=== PATIENT | female | born 1970 | race African-American/Black ===

== ENCOUNTER 2023-09-23 13:09 | Outpatient (OUT) | payer OTHER, SELFPAY ==
--- NOTE | 2023-09-23 13:12 | VEIN_ITS ---
[facility] [place] [id number] Patient Name: CHARLY VANESSA MRN: [id number] date: 1970 Sex: F Assigned Patient Location: Current Patient Location: Accession/Order Number: [id number] Exam Date: 09/23/2023 13:12 Report Date: 09/28/2023 07:37 At the request of: YASMIN VILA Procedure: VC SEGMENTAL PRESSURES EXAM: VC SEGMENTAL PRESSURES HISTORY: I73.9 COMPARISON: None. FINDINGS: Segmental pressures presented as follows (right, left) in mmHg. 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
--- NOTE | 2023-09-23 13:12 | VEIN_ITS ---
[place] [id number] Patient Name: CHARLY VANESSA MRN: [id number] date: 1970 Sex: F Assigned Patient Location: Current Patient Location: Accession/Order Number: [id number] Exam Date: 09/23/2023 13:12 Report Date: 09/28/2023 07:56 At the request of: YASMIN VILA Procedure: VC Arterial Scan Abdulkadir EXAM: VC Arterial Scan Abdulkadir HISTORY: I73.9 COMPARISON: None. TECHNIQUE: Grayscale, color and Doppler FINDINGS: Evaluation of a femorofemoral bypass graft demonstrates the graft to be patent Right leg: Common femoral artery: Monophasic waveform Popliteal: Monophasic waveform with spectral broadening Anterior tibial artery: Monophasic waveform with delayed systolic upstroke Posterior tibial artery: Monophasic waveform with delayed systolic upstroke and spectral broadening Left leg: Common femoral artery: Monophasic waveform Femoral arteries: Monophasic waveform Popliteal artery: Biphasic waveform Anterior tibial artery: Biphasic waveform Posterior tibial artery: Monophasic waveform peroneal artery: Monophasic waveform with low velocity of 13 cm/s VEIN/VC Arterial Scan Abdulkadir IMPRESSION: Patent femorofemoral bypass graft Bilateral monophasic waveform suggesting moderate ischemia detailed above Electronically authenticated by: SIENNA MEZA Date: 09/28/2023 07:56
== END 2023-09-23 13:10 | disposition home or self-care (01) ==
LOC: VC 13:10
PROVIDERS: PCP Student in an Organized Health Care Education/Training Program; Visit Provider Student in an Organized Health Care Education/Training Program
DX: I73.9 Peripheral vascular disease, unspecified (principal)
CPT/HCPCS: 93923; 93925